=== PATIENT | female | born 1950 | race Two or more races ===

== ENCOUNTER 2022-06-17 12:41 | Outpatient (CLI) | payer OTHER ==
[~2022-06-17 12:41] MED LIST: [UNRECOGNIZED DRUG - REMARK]
== END 2022-06-17 12:45 | disposition home or self-care (01) ==
LOC: NUCLEAR 12:41
PROVIDERS: ATTEND Internal Medicine Sports Medicine
DX: M81.0 Age-related osteoporosis without current pathological fracture (principal)

== ENCOUNTER 2022-06-23 12:48 | Outpatient (CLI) | payer OTHER | END 2022-06-23 12:51 | disposition home or self-care (01) | LOC: NUCLEAR 12:48 | PROVIDERS: ATTEND Internal Medicine Sports Medicine | DX: C73 Malignant neoplasm of thyroid gland (principal) | CPT/HCPCS: 78018; 78020; A9528 ==

== ENCOUNTER 2024-03-23 13:15 | Outpatient (CLI) | payer OTHER | END 2024-03-23 13:18 | disposition home or self-care (01) | LOC: NUCLEAR 13:15 | PROVIDERS: ATTEND Internal Medicine Sports Medicine | DX: C73 Malignant neoplasm of thyroid gland (principal) | CPT/HCPCS: 78018; A9528 ==